=== PATIENT | male | born 1950 | race Caucasian/White ===

== ENCOUNTER 2017-03-05 22:22 | Emergency (ER) | payer OTHER, BC ==
[~2017-03-05 22:22] MED LIST: ABSORBASE TOP; ALLOPURINOL100 MG PO; ALLOPURINOL100 PO; AMLODIPINE BES10 MG PO; AMLODIPINE BESY10 M1 PO; CALCITRIOL0.25 MCG PO; CARVEDILOL12.5 M1 PO; CARVEDILOL25 MG PO; CLINDAMYCIN PHOS TOP; COL250 PO; COLACE100 MG PO; CRESTOR40 M1 PO; CRESTOR40 MG PO; FLUOXETINE HCL PO; FLUOXETINE HCL20 MG PO; FUROCOT40 MG PO; FUROSEMIDE40 MG PO; GLIPIZIDE; GLIPIZIDE10 MG PO; GLU10 PO; HYDROXYZINE PAM50 MG PO; HYDROXYZINE50 M1 PO; LAC PO; LASIX; LEVAQUIN750 MG PO; LISINOPRIL; LISINOPRIL40 MG PO; LOP600 PO; LYRICA; LYRICA100 M1 PO; LYRICA100 MG PO; NORCO1 TA2 PO; OMEPRAZOLE D/R20 M1 PO; OMEPRAZOLE DR20 M1 PO; OMEPRAZOLE20 MG PO; PAXIL10 MG PO; REN800 PO; RENAGEL800 M1 PO; RENAGEL800 MG PO; RENAL MULTIVITA1 TAB PO; TYL500 PO; VIAGRA PO; VIAGRA100 MG PO; VIC PO
[2017-03-06 00:02] LABS: BASOPHIL % 0.6 % (0-2); PLATELET COUNT 102 x10^3mcL (130-400); RED CELL DISTRIBUTION WIDTH 15.9 % (11.5-14.5)
[2017-03-06 00:11] LABS: BILIRUBIN TOTAL 0.6 mg/dL (0.20-1.00); CALCIUM 8.3 mg/dL (8.5-10.1); CARBON DIOXIDE 34.2 mmol/L (21-32); POTASSIUM SERUM 4.8 mmol/L (3.5-5.1)
[2017-03-06 00:12] LABS: ALBUMIN 2.2 g/dL (3.4-5.0); TOTAL PROTEIN, SERUM 5.8 g/dL (6.4-8.2)
[2017-03-06 00:13] LABS: CREATININE SERUM 5.1 mg/dL (0.7-1.3)
[2017-03-06 05:48] VITALS: BP 130/74
== END 2017-03-06 05:48 | disposition home or self-care (01) ==
LOC: ED 22:22
PROVIDERS: Emergency Medicine Emergency Medical Services
DX: T81.4XXA Infection following a procedure, initial encounter (principal); I11.0 Hypertensive heart disease with heart failure; I50.9 Heart failure, unspecified; E11.9 Type 2 diabetes mellitus without complications; Z95.5 Presence of coronary angioplasty implant and graft; Z88.0 Allergy status to penicillin
CPT/HCPCS: G0480; J1956; J3370

== ENCOUNTER 2017-04-04 17:56 | Inpatient (IN) | payer OTHER, BC ==
[~2017-04-04] VITALS: Ht 182.9 cm; Wt 95.9 kg
[2017-04-04 21:08] LABS: BASOPHIL % 0.5 % (0-2); PLATELET COUNT 174 x10^3mcL (130-400)
[2017-04-04 21:28] LABS: RED CELL DISTRIBUTION WIDTH 18.3 % (11.5-14.5)
[2017-04-04 21:31] LABS: BILIRUBIN TOTAL 0.4 mg/dL (0.20-1.00); CALCIUM 9.5 mg/dL (8.5-10.1); CARBON DIOXIDE 33.5 mmol/L (21-32); POTASSIUM SERUM 3.3 mmol/L (3.5-5.1); TOTAL PROTEIN, SERUM 7.5 g/dL (6.4-8.2)
[2017-04-04 21:37] LABS: ALBUMIN 3.2 g/dL (3.4-5.0)
[2017-04-04 21:38] LABS: CREATININE SERUM 5.6 mg/dL (0.7-1.3)
[2017-04-04] MEDS ORDERED: APAP500 MG PO (22:32)
[2017-04-04] MEDS ORDERED: CARVEDILOL25 M1 PO (22:33)
[2017-04-04] MEDS ORDERED: ASPIR 8181 MG PO (22:33)
[2017-04-04] MEDS ORDERED: STOOL SOFTENER100 MG PO (22:34)
[2017-04-04] MEDS ORDERED: SENSIPAR30 M1 PO (22:34)
[2017-04-04] MEDS ORDERED: CLOPIDOGREL75 M1 PO (22:34)
[2017-04-04] MEDS ORDERED: HYDROCORTISONE2.51 TOP (22:35)
[2017-04-04] MEDS ORDERED: COLACE100 MG PO (22:35)
[2017-04-04] MEDS ORDERED: GOOD NEIGHBOR P20 M2 PO (22:36)
[2017-04-04] MEDS ORDERED: OXYCODONE HCL PO (22:37)
[2017-04-04] MEDS ORDERED: PRAZOSIN HYDROCH2 MG PO (22:38)
[2017-04-04] MEDS ORDERED: LYRICA75 M1 PO (22:38)
[2017-04-04] MEDS ORDERED: RENAL VITAMIN0.8 MG PO (22:39)
[2017-04-04] MEDS ORDERED: FLUORITAB0.5 MG TOP (22:40)
[2017-04-04 23:45] VITALS: BP 165/83
[2017-04-05] VITALS (7 sets, daily range): BP systolic 123–165; BP diastolic 63–83; Ht 182.9 cm; Wt 95.9 kg
[2017-04-05 01:58] LABS: CHOLESTEROL/HDL RATIO 4.3; MAGNESIUM 1.8 mg/dL (1.8-2.4); PHOSPHOROUS 3.8 mg/dL (2.5-4.9)
[2017-04-05 02:09] LABS: T3 TOTAL 0.99 ng/mL
[2017-04-05 02:14] LABS: FREE T4 1.48 ng/dL (0.76-1.46); FREE THYROXINE INDEX 4.1 ug/dL (1.4-4.5); T4(THYROXINE) 10.8 ug/dL (4.7-13.3)
[2017-04-05 04:38] LABS: BASOPHIL % 0.7 % (0-2); PLATELET COUNT 157 x10^3mcL (130-400)
[2017-04-05 04:40] LABS: RED CELL DISTRIBUTION WIDTH 17.8 % (11.5-14.5)
[2017-04-05 04:52] LABS: CALCIUM 9.3 mg/dL (8.5-10.1); POTASSIUM SERUM 3.6 mmol/L (3.5-5.1)
[2017-04-05 04:55] LABS: CREATININE SERUM 6.2 mg/dL (0.7-1.3)
[2017-04-06 05:22] VITALS: BP 111/59
[2017-04-06 06:20] LABS: BASOPHIL % 0.6 % (0-2)
[2017-04-06 06:23] LABS: PLATELET COUNT 118 x10^3mcL (130-400); RED CELL DISTRIBUTION WIDTH 17.8 % (11.5-14.5)
[2017-04-06 06:37] LABS: CALCIUM 9.1 mg/dL (8.5-10.1); CARBON DIOXIDE 29.3 mmol/L (21-32); MAGNESIUM 1.9 mg/dL (1.8-2.4); PHOSPHOROUS 6.1 mg/dL (2.5-4.9); POTASSIUM SERUM 3.5 mmol/L (3.5-5.1)
[2017-04-06 07:25] VITALS: BP 121/70
[2017-04-06 11:10] VITALS: BP 119/60
[2017-04-06 14:56] VITALS: BP 116/67
[2017-04-06 18:04] VITALS: BP 132/75
[2017-04-06 21:41] VITALS: BP 139/73
[2017-04-07 05:54] VITALS: BP 100/56
[2017-04-07 06:38] LABS: CALCIUM 8.4 mg/dL (8.5-10.1); CARBON DIOXIDE 27.2 mmol/L (21-32); MAGNESIUM 1.8 mg/dL (1.8-2.4); PHOSPHOROUS 6.4 mg/dL (2.5-4.9)
[2017-04-07 06:47] LABS: BASOPHIL % 0.4 % (0-2)
[2017-04-07 06:53] LABS: CREATININE SERUM 9.4 mg/dL (0.7-1.3)
[2017-04-07 07:10] LABS: PLATELET COUNT 95 x10^3mcL (130-400); RED CELL DISTRIBUTION WIDTH 17.4 % (11.5-14.5)
[2017-04-07 08:52] VITALS: BP 129/69
[2017-04-07 09:19] LABS: AMPHETAMINE QUAL UR NONE DETECTED (NEG <=1000)
[2017-04-07 12:09] VITALS: BP 128/74
[2017-04-07 16:57] VITALS: BP 132/62
[2017-04-07 17:37] LABS: microscopic required? YES; urine erythrocyte NEGATIVE (NEGATIVE)
[2017-04-07 21:23] VITALS: BP 139/72
== END 2017-04-08 01:17 | disposition left against medical advice (07) | DRG 205 ==
LOC: ED 17:56 → DU 22:46
PROVIDERS: Emergency Medicine; Family Medicine Sports Medicine; ADMIT Family Medicine
DX: M94.0 Chondrocostal junction syndrome [Tietze] (principal); I26.99 Other pulmonary embolism without acute cor pulmonale; N17.0 Acute kidney failure with tubular necrosis; N18.6 End stage renal disease; E44.0 Moderate protein-calorie malnutrition; I12.0 Hypertensive chronic kidney disease with stage 5 chronic kidney disease or end stage renal disease; I25.10 Atherosclerotic heart disease of native coronary artery without angina pectoris; M10.9 Gout, unspecified; G47.33 Obstructive sleep apnea (adult) (pediatric); E87.6 Hypokalemia; E78.5 Hyperlipidemia, unspecified; D53.9 Nutritional anemia, unspecified; F32.9 Major depressive disorder, single episode, unspecified; F14.10 Cocaine abuse, uncomplicated; Z68.30 Body mass index [BMI] 30.0-30.9, adult; Z99.2 Dependence on renal dialysis; Z95.5 Presence of coronary angioplasty implant and graft; Z90.5 Acquired absence of kidney
CPT/HCPCS: 78598; 82962; 83880; 84439; 85378; A9540; J1644; J7030; J7042; Q0092; Q0163

== ENCOUNTER 2017-05-29 17:33 | Emergency (ER) | payer OTHER, BC ==
[~2017-05-29] VITALS: Ht 182.9 cm; Wt 98.0 kg
[~2017-05-29 17:33] MED LIST changes: +APAP500 MG PO; +ASPIR 8181 MG PO; +CARVEDILOL25 M1 PO; +CLOPIDOGREL75 M1 PO; +FLUORITAB0.5 MG TOP; +GOOD NEIGHBOR P20 M2 PO; +HYDROCORTISONE2.51 TOP; +LYRICA75 M1 PO; +OXYCODONE HCL PO; +PRAZOSIN HYDROCH2 MG PO; +RENAL VITAMIN0.8 MG PO; +SENSIPAR30 M1 PO; +STOOL SOFTENER100 MG PO
[2017-05-29 18:37] LABS: BASOPHIL % 1.2 % (0-2); PLATELET COUNT 171 x10^3mcL (130-400)
[2017-05-29 18:54] LABS: RED CELL DISTRIBUTION WIDTH 18.2 % (11.5-14.5)
[2017-05-29] MEDS ORDERED: SUDAFED CONGEST30 MG PO (18:57)
[2017-05-29] MEDS ORDERED: REN800 PO (18:58)
[2017-05-29] MEDS ORDERED: PAXIL10 MG PO (18:58)
[2017-05-29] MEDS ORDERED: LISINOPRIL40 MG PO (18:58)
[2017-05-29] MEDS ORDERED: FLONS (18:58)
[2017-05-29] MEDS ORDERED: LYRICA100 M1 PO (18:58)
[2017-05-29] MEDS ORDERED: HYDROXYZINE PAM50 MG PO (18:59)
[2017-05-29] MEDS ORDERED: GOOD SENSE OMEP20 MG PO (19:00)
[2017-05-29 19:04] LABS: BILIRUBIN TOTAL 0.68 mg/dL (0.20-1.00); CALCIUM 9.2 mg/dL (8.5-10.1); CARBON DIOXIDE 28.6 mmol/L (21-32); POTASSIUM SERUM 4.7 mmol/L (3.5-5.1); T4(THYROXINE) 5.8 ug/dL (4.7-13.3); TOTAL PROTEIN, SERUM 6.8 g/dL (6.4-8.2)
[2017-05-29] MEDS ORDERED: LASIX40 MG PO (19:04)
[2017-05-29] MEDS ORDERED: GLUCOTROL10 MG PO (19:04)
[2017-05-29] MEDS ORDERED: CRESTOR40 M1 PO (19:05)
[2017-05-29] MEDS ORDERED: COREG12.5 MG PO (19:05)
[2017-05-29] MEDS ORDERED: PROZ20 PO (19:05)
[2017-05-29] MEDS ORDERED: CALCITRIOL0.25 MCG PO (19:05)
[2017-05-29] MEDS ORDERED: NOR10 PO (19:05)
[2017-05-29] MEDS ORDERED: ALLOPURINOL100 MG PO (19:06)
[2017-05-29 19:10] LABS: CREATININE SERUM 8.6 mg/dL (0.7-1.3)
[2017-05-29 20:53] VITALS: BP 133/74
== END 2017-05-29 20:54 | disposition home or self-care (01) ==
LOC: ED 17:33
PROVIDERS: Emergency Medicine
DX: J00 Acute nasopharyngitis [common cold] (principal); E11.22 Type 2 diabetes mellitus with diabetic chronic kidney disease; E78.00 Pure hypercholesterolemia, unspecified; I12.0 Hypertensive chronic kidney disease with stage 5 chronic kidney disease or end stage renal disease; N18.6 End stage renal disease; M10.9 Gout, unspecified; E46 Unspecified protein-calorie malnutrition; D64.9 Anemia, unspecified; I44.7 Left bundle-branch block, unspecified; Z99.2 Dependence on renal dialysis
CPT/HCPCS: 36600; 83880; Q0092

== ENCOUNTER 2017-09-28 17:33 | Inpatient (IN) | payer OTHER, BC ==
[~2017-09-28] VITALS: Ht 182.9 cm; Wt 95.8 kg
[~2017-09-28 17:33] MED LIST changes: +COREG12.5 MG PO; +FLONS; +GLUCOTROL10 MG PO; +GOOD SENSE OMEP20 MG PO; +LASIX40 MG PO; +NOR10 PO; +PROZ20 PO; +SUDAFED CONGEST30 MG PO
[2017-09-28] MEDS ORDERED: ZYLOPRIM300 MG PO (18:25)
[2017-09-28] MEDS ORDERED: NOR10 PO (18:25)
[2017-09-28] MEDS ORDERED: CALCITRIOL0.25 MCG PO (18:26)
[2017-09-28] MEDS ORDERED: COREG6.25 M1 PO (18:30)
[2017-09-28] MEDS ORDERED: FLUOXETINE20 M3 PO (18:31)
[2017-09-28] MEDS ORDERED: GLIPIZIDE10 M2 PO (18:32)
[2017-09-28] MEDS ORDERED: LASIX40 MG PO (18:32)
[2017-09-28] MEDS ORDERED: LISINOPRIL40 MG PO (18:34)
[2017-09-28] MEDS ORDERED: GOOD SENSE OMEP20 MG PO (18:34)
[2017-09-28] MEDS ORDERED: LYRICA100 M1 PO (18:34)
[2017-09-28] MEDS ORDERED: HYDROXYZINE50 M1 PO (18:34)
[2017-09-28] MEDS ORDERED: PAXIL10 MG PO (18:34)
[2017-09-28] MEDS ORDERED: CRESTOR40 M1 PO (18:35)
[2017-09-28] MEDS ORDERED: RENVELA800 M1 PO (18:35)
[2017-09-28 20:27] LABS: BASOPHIL % 0.7 % (0-2); PLATELET COUNT 205 x10^3mcL (130-400)
[2017-09-28 21:00] LABS: BILIRUBIN TOTAL 0.4 mg/dL (0.20-1.00); CALCIUM 8.8 mg/dL (8.5-10.1); POTASSIUM SERUM 4.6 mmol/L (3.5-5.1); T4(THYROXINE) 5.9 ug/dL (4.7-13.3); TOTAL PROTEIN, SERUM 6.7 g/dL (6.4-8.2)
[2017-09-28 21:03] LABS: RED CELL DISTRIBUTION WIDTH 18.3 % (11.5-14.5)
[2017-09-28 22:45] VITALS: BP 156/90
[2017-09-29 04:00] LABS: BASOPHIL % 0.6 % (0-2); PLATELET COUNT 188 x10^3mcL (130-400); RED CELL DISTRIBUTION WIDTH 17.8 % (11.5-14.5)
[2017-09-29 04:06] LABS: CALCIUM 8.6 mg/dL (8.5-10.1); CARBON DIOXIDE 31.4 mmol/L (21-32); POTASSIUM SERUM 4.6 mmol/L (3.5-5.1)
[2017-09-29 04:22] LABS: CREATININE SERUM 8.2 mg/dL (0.7-1.3)
[2017-09-29 06:43] VITALS: BP 150/91
[2017-09-29 09:13] LABS: T3 TOTAL 0.62 ng/mL
[2017-09-29 09:37] VITALS: BP 139/85
[2017-09-29 10:35] LABS: CHOLESTEROL/HDL RATIO 2.9; MAGNESIUM 2.1 mg/dL (1.8-2.4); PHOSPHOROUS 7.7 mg/dL (2.5-4.9)
[2017-09-29 11:26] LABS: FREE T4 1.17 ng/dL (0.76-1.46); FREE THYROXINE INDEX 2.2 ug/dL (1.4-4.5); T4(THYROXINE) 6.1 ug/dL (4.7-13.3)
[2017-09-29 13:55] VITALS: BP 130/80
[2017-09-29 17:08] VITALS: BP 123/64
[2017-09-29 20:57] VITALS: BP 110/76
[2017-09-30 05:47] VITALS: BP 106/58
[2017-09-30 06:36] LABS: CALCIUM 8.7 mg/dL (8.5-10.1); CARBON DIOXIDE 29.9 mmol/L (21-32); MAGNESIUM 1.9 mg/dL (1.8-2.4); POTASSIUM SERUM 4.5 mmol/L (3.5-5.1)
[2017-09-30 06:42] LABS: CREATININE SERUM 6.2 mg/dL (0.7-1.3)
[2017-09-30 06:59] LABS: BASOPHIL % 0.5 % (0-2); PLATELET COUNT 154 x10^3mcL (130-400)
[2017-09-30 09:14] VITALS: Ht 182.9 cm; Wt 95.8 kg
[2017-09-30 10:06] VITALS: BP 122/67
[2017-09-30] MEDS ORDERED: LASIX40 MG PO (10:23)
[2017-09-30] MEDS ORDERED: GOOD SENSE ASPI81 M3 PO (11:28)
[2017-09-30 13:41] VITALS: BP 122/67
== END 2017-09-30 15:03 | disposition home health service (06) | DRG 291 ==
LOC: ED 17:33 → DU 21:27
PROVIDERS: Emergency Medicine; Family Medicine; Family Medicine Sports Medicine
PROC: 5A1D70Z Performance of Urinary Filtration, Intermittent, Less than 6 Hours Per Day (ICD-10-PCS; principal; 2017-09-29)
DX: I13.2 Hypertensive heart and chronic kidney disease with heart failure and with stage 5 chronic kidney disease, or end stage renal disease (principal); N18.6 End stage renal disease; I50.43 Acute on chronic combined systolic (congestive) and diastolic (congestive) heart failure; N17.0 Acute kidney failure with tubular necrosis; E44.0 Moderate protein-calorie malnutrition; E78.5 Hyperlipidemia, unspecified; I44.7 Left bundle-branch block, unspecified; E11.65 Type 2 diabetes mellitus with hyperglycemia; I25.10 Atherosclerotic heart disease of native coronary artery without angina pectoris; R26.81 Unsteadiness on feet; E83.39 Other disorders of phosphorus metabolism; E11.51 Type 2 diabetes mellitus with diabetic peripheral angiopathy without gangrene; M94.0 Chondrocostal junction syndrome [Tietze]; E11.22 Type 2 diabetes mellitus with diabetic chronic kidney disease; Z99.2 Dependence on renal dialysis; Z88.0 Allergy status to penicillin; Z90.49 Acquired absence of other specified parts of digestive tract; Z91.15 Patient's noncompliance with renal dialysis; I25.2 Old myocardial infarction; Z95.5 Presence of coronary angioplasty implant and graft; Z93.6 Other artificial openings of urinary tract status; Z83.3 Family history of diabetes mellitus; Z82.49 Family history of ischemic heart disease and other diseases of the circulatory system; Z68.27 Body mass index [BMI] 27.0-27.9, adult
CPT/HCPCS: 82962; 83880; 84439; 97110-GP; 97530-GP; J1644; J1940; J1956; J7030; Q0092

== ENCOUNTER 2018-02-24 11:57 | Inpatient (IN) | payer OTHER, BC ==
[~2018-02-24] VITALS: Ht 170.2 cm; Wt 91.7 kg
[~2018-02-24 11:57] MED LIST changes: +COREG6.25 M1 PO; +FLUOXETINE20 M3 PO; +GLIPIZIDE10 M2 PO; +GOOD SENSE ASPI81 M3 PO; +RENVELA800 M1 PO; +ZYLOPRIM300 MG PO
[2018-02-24 12:26] VITALS: Ht 170.2 cm; Wt 91.7 kg
[2018-02-24 13:00] LABS: BASOPHIL % 0.7 % (0-2)
[2018-02-24 13:02] LABS: PLATELET COUNT 121 x10^3mcL (130-400); RED CELL DISTRIBUTION WIDTH 20.4 % (11.5-14.5)
[2018-02-24 13:22] LABS: BILIRUBIN TOTAL 0.73 mg/dL (0.20-1.00); CALCIUM 8.6 mg/dL (8.5-10.1); CARBON DIOXIDE 26.1 mmol/L (21-32); POTASSIUM SERUM 4.7 mmol/L (3.5-5.1); TOTAL PROTEIN, SERUM 6.3 g/dL (6.4-8.2)
[2018-02-24 13:27] LABS: ALBUMIN 2.6 g/dL (3.4-5.0)
[2018-02-24 13:28] LABS: CREATININE SERUM 6.5 mg/dL (0.7-1.3)
[2018-02-24] MEDS ORDERED: ALLOPURINOL100 MG PO (13:56)
[2018-02-24] MEDS ORDERED: CAVERJECT IMPU IJ (13:58)
[2018-02-24] MEDS ORDERED: ASPIR LOW81 MG PO (13:59)
[2018-02-24] MEDS ORDERED: PLA75 PO (13:59)
[2018-02-24] MEDS ORDERED: FLUOXETINE40 MG PO (14:01)
[2018-02-24] MEDS ORDERED: GLUCOTROL10 MG PO (14:01)
[2018-02-24] MEDS ORDERED: TOPROL XL50 MG PO (14:02)
[2018-02-24] MEDS ORDERED: GOOD NEIGHBOR P20 M2 PO (14:03)
[2018-02-24] MEDS ORDERED: PRAZOSIN HYDROCH2 MG PO (14:04)
[2018-02-24] MEDS ORDERED: LYRICA100 M1 PO (14:05)
[2018-02-24] MEDS ORDERED: LYRICA75 M1 PO (14:06)
[2018-02-24] MEDS ORDERED: RENVELA800 M1 PO (14:07)
[2018-02-24] MEDS ORDERED: CRESTOR40 M1 PO (14:07)
[2018-02-24] MEDS ORDERED: RENAL CAPS1 SGL PO (14:07)
[2018-02-24 14:14] LABS: ovalocyte/elliptocyte 1+; rbc morphology (normal/abnorm) ABNORMAL (NORMAL); tear drop cell (dacryocyte) 1+
[2018-02-24 15:35] LABS: T3 TOTAL 0.56 ng/mL
[2018-02-24 15:45] LABS: PHOSPHOROUS 6.2 mg/dL (2.5-4.9)
[2018-02-24 15:52] LABS: FREE T4 1.21 ng/dL (0.76-1.46); FREE THYROXINE INDEX 2.3 ug/dL (1.4-4.5); T4(THYROXINE) 6.5 ug/dL (4.7-13.3)
[2018-02-24 16:57] VITALS: BP 99/54
[2018-02-24] MEDS ORDERED: OXYCODONE HYDROC5 M2 PO (17:55)
[2018-02-24 19:30] VITALS: BP 109/63
[2018-02-25 05:24] VITALS: BP 101/57
[2018-02-25 07:04] LABS: CALCIUM 8.5 mg/dL (8.5-10.1); CARBON DIOXIDE 26.5 mmol/L (21-32); PHOSPHOROUS 4.7 mg/dL (2.5-4.9); POTASSIUM SERUM 4.5 mmol/L (3.5-5.1)
[2018-02-25 07:05] LABS: BASOPHIL % 0.5 % (0-2)
[2018-02-25 07:06] LABS: PLATELET COUNT 117 x10^3mcL (130-400); RED CELL DISTRIBUTION WIDTH 20.1 % (11.5-14.5)
[2018-02-25 07:07] LABS: rbc morphology (normal/abnorm) ABNORMAL (NORMAL)
[2018-02-25 07:50] LABS: CREATININE SERUM 4.8 mg/dL (0.7-1.3)
[2018-02-25 09:16] VITALS: BP 100/63
[2018-02-25 17:24] VITALS: BP 105/62
[2018-02-25 20:46] VITALS: BP 102/63; BP 111/66
[2018-02-26 05:12] VITALS: BP 101/59
[2018-02-26 06:03] LABS: BASOPHIL % 0.5 % (0-2); PLATELET COUNT 130 x10^3mcL (130-400)
[2018-02-26 06:25] LABS: CALCIUM 8.4 mg/dL (8.5-10.1); CARBON DIOXIDE 25.7 mmol/L (21-32); MAGNESIUM 2.1 mg/dL (1.8-2.4); PHOSPHOROUS 5.6 mg/dL (2.5-4.9)
[2018-02-26 06:32] LABS: CREATININE SERUM 5.7 mg/dL (0.7-1.3); POTASSIUM SERUM 5.6 mmol/L (3.5-5.1)
[2018-02-26 06:39] LABS: RED CELL DISTRIBUTION WIDTH 20.5 % (11.5-14.5)
[2018-02-26 08:47] VITALS: BP 112/61
[2018-02-26 09:30] LABS: ovalocyte/elliptocyte 1+
[2018-02-26 10:32] LABS: rbc morphology (normal/abnorm) ABNORMAL (NORMAL)
[2018-02-26 17:03] VITALS: BP 106/54
[2018-02-26 20:40] VITALS: BP 141/72
[2018-02-27 05:00] VITALS: BP 100/61
[2018-02-27 06:31] LABS: CARBON DIOXIDE 26.9 mmol/L (21-32); POTASSIUM SERUM 4.4 mmol/L (3.5-5.1)
[2018-02-27 16:00] VITALS: BP 97/55
[2018-02-27 20:42] VITALS: BP 125/68
[2018-02-28 05:45] VITALS: BP 96/57
[2018-02-28 06:37] LABS: CALCIUM 8.5 mg/dL (8.5-10.1); CARBON DIOXIDE 28.3 mmol/L (21-32); POTASSIUM SERUM 4.8 mmol/L (3.5-5.1)
[2018-02-28 06:50] LABS: CREATININE SERUM 4.7 mg/dL (0.7-1.3)
[2018-02-28 07:28] LABS: BASOPHIL % 0.3 % (0-2)
[2018-02-28 07:49] LABS: RED CELL DISTRIBUTION WIDTH 19.2 % (11.5-14.5)
[2018-02-28 08:01] LABS: PLATELET COUNT 140 x10^3mcL (130-400)
[2018-02-28 08:37] VITALS: BP 89/52
[2018-02-28 08:39] VITALS: BP 93/53
[2018-02-28] MEDS ORDERED: BACTRIM DS1 TAB PO (14:43)
[2018-02-28] MEDS ORDERED: NOVAPLUS LIDOCAI5 ML TOP (14:44)
[2018-02-28 15:23] VITALS: BP 93/53
== END 2018-02-28 16:18 | disposition home or self-care (01) | DRG 637 ==
LOC: ED 11:57 → MU 14:38
PROVIDERS: Emergency Medicine; Family Medicine
DX: E11.649 Type 2 diabetes mellitus with hypoglycemia without coma (principal); E43 Unspecified severe protein-calorie malnutrition; I12.0 Hypertensive chronic kidney disease with stage 5 chronic kidney disease or end stage renal disease; E87.1 Hypo-osmolality and hyponatremia; L03.115 Cellulitis of right lower limb; L97.211 Non-pressure chronic ulcer of right calf limited to breakdown of skin; N18.6 End stage renal disease; N17.0 Acute kidney failure with tubular necrosis; E11.22 Type 2 diabetes mellitus with diabetic chronic kidney disease; B96.1 Klebsiella pneumoniae [K. pneumoniae] as the cause of diseases classified elsewhere; E83.39 Other disorders of phosphorus metabolism; I25.2 Old myocardial infarction; Z99.2 Dependence on renal dialysis; Z90.5 Acquired absence of kidney; Z68.22 Body mass index [BMI] 22.0-22.9, adult; Z79.84 Long term (current) use of oral hypoglycemic drugs
CPT/HCPCS: 84439; J0713; J3370; J3490; J7030; J7050; Q0092; Q0162

== ENCOUNTER 2018-02-28 22:13 | Inpatient (IN) | payer OTHER, BC ==
[~2018-02-28] VITALS: Ht 182.9 cm; Wt 92.1 kg
[~2018-02-28 22:13] MED LIST changes: +ASPIR LOW81 MG PO; +BACTRIM DS1 TAB PO; +CAVERJECT IMPU IJ; +FLUOXETINE40 MG PO; +NOVAPLUS LIDOCAI5 ML TOP; +OXYCODONE HYDROC5 M2 PO; +PLA75 PO; +RENAL CAPS1 SGL PO; +TOPROL XL50 MG PO
[2018-02-28 22:22] VITALS: Ht 182.9 cm; Wt 92.1 kg
[2018-03-01] VITALS (7 sets, daily range): BP systolic 98–138; BP diastolic 52–75
[2018-03-01 00:05] LABS: CALCIUM 8.3 mg/dL (8.5-10.1); CARBON DIOXIDE 25.6 mmol/L (21-32); POTASSIUM SERUM 5.4 mmol/L (3.5-5.1)
[2018-03-01 00:08] LABS: CREATININE SERUM 5.4 mg/dL (0.7-1.3)
[2018-03-01 02:12] LABS: MAGNESIUM 1.9 mg/dL (1.8-2.4); PHOSPHOROUS 6.2 mg/dL (2.5-4.9)
[2018-03-01 08:39] LABS: BASOPHIL % 0.7 % (0-2); PLATELET COUNT 137 x10^3mcL (130-400)
[2018-03-01 08:49] LABS: RED CELL DISTRIBUTION WIDTH 19.7 % (11.5-14.5)
[2018-03-01 09:07] LABS: CALCIUM 8.2 mg/dL (8.5-10.1); CARBON DIOXIDE 28.3 mmol/L (21-32); POTASSIUM SERUM 4.9 mmol/L (3.5-5.1)
[2018-03-01 09:11] LABS: CREATININE SERUM 5.9 mg/dL (0.7-1.3)
[2018-03-02 05:39] VITALS: BP 94/53
[2018-03-02 07:28] LABS: CALCIUM 8.1 mg/dL (8.5-10.1); CARBON DIOXIDE 26.9 mmol/L (21-32); MAGNESIUM 1.8 mg/dL (1.8-2.4); PHOSPHOROUS 5.3 mg/dL (2.5-4.9)
[2018-03-02 07:33] LABS: BASOPHIL % 0.6 % (0-2)
[2018-03-02 07:43] LABS: PLATELET COUNT 115 x10^3mcL (130-400); RED CELL DISTRIBUTION WIDTH 19.4 % (11.5-14.5)
[2018-03-02 07:44] LABS: CREATININE SERUM 4.7 mg/dL (0.7-1.3)
[2018-03-02 08:00] VITALS: BP 105/57
[2018-03-02 12:39] VITALS: BP 111/66
[2018-03-02 17:24] VITALS: BP 105/63
[2018-03-02 19:40] VITALS: BP 92/56
[2018-03-03 06:13] VITALS: BP 111/66
[2018-03-03 07:42] LABS: BASOPHIL % 0.3 % (0-2); PLATELET COUNT 130 x10^3mcL (130-400); RED CELL DISTRIBUTION WIDTH 19.4 % (11.5-14.5)
[2018-03-03 07:58] LABS: CALCIUM 8.5 mg/dL (8.5-10.1); POTASSIUM SERUM 4.6 mmol/L (3.5-5.1)
[2018-03-03 08:00] VITALS: BP 93/59
[2018-03-03 08:02] LABS: CREATININE SERUM 5.8 mg/dL (0.7-1.3)
[2018-03-03 13:15] VITALS: BP 122/72
[2018-03-03 17:22] VITALS: BP 122/75
[2018-03-03 20:29] VITALS: BP 124/71
[2018-03-04 05:18] VITALS: BP 110/69
[2018-03-04 07:54] LABS: BASOPHIL % 0.7 % (0-2); PLATELET COUNT 116 x10^3mcL (130-400); RED CELL DISTRIBUTION WIDTH 19.2 % (11.5-14.5)
[2018-03-04 07:55] LABS: CALCIUM 8.4 mg/dL (8.5-10.1); CARBON DIOXIDE 28.1 mmol/L (21-32); POTASSIUM SERUM 4.1 mmol/L (3.5-5.1)
[2018-03-04 07:57] LABS: CREATININE SERUM 5.1 mg/dL (0.7-1.3)
[2018-03-04] MEDS ORDERED: LEVOFLOXACIN500 M1 PO (08:31)
[2018-03-04 08:35] VITALS: BP 110/69
[2018-03-04 09:05] VITALS: BP 108/58
== END 2018-03-04 10:56 | disposition home or self-care (01) | DRG 291 ==
LOC: ED 22:13 → DU 03-01 00:31
PROVIDERS: Emergency Medicine; Family Medicine; Internal Medicine
DX: I13.2 Hypertensive heart and chronic kidney disease with heart failure and with stage 5 chronic kidney disease, or end stage renal disease (principal); N17.0 Acute kidney failure with tubular necrosis; J96.01 Acute respiratory failure with hypoxia; N18.6 End stage renal disease; E87.1 Hypo-osmolality and hyponatremia; E44.0 Moderate protein-calorie malnutrition; L03.115 Cellulitis of right lower limb; L97.219 Non-pressure chronic ulcer of right calf with unspecified severity; I83.012 Varicose veins of right lower extremity with ulcer of calf; E11.22 Type 2 diabetes mellitus with diabetic chronic kidney disease; I50.9 Heart failure, unspecified; B96.1 Klebsiella pneumoniae [K. pneumoniae] as the cause of diseases classified elsewhere; B96.89 Other specified bacterial agents as the cause of diseases classified elsewhere; D69.59 Other secondary thrombocytopenia; E87.5 Hyperkalemia; E83.39 Other disorders of phosphorus metabolism; E78.5 Hyperlipidemia, unspecified; I25.2 Old myocardial infarction; E66.9 Obesity, unspecified; Z68.31 Body mass index [BMI] 31.0-31.9, adult; Z79.891 Long term (current) use of opiate analgesic; Z79.82 Long term (current) use of aspirin; Z79.84 Long term (current) use of oral hypoglycemic drugs; Z99.2 Dependence on renal dialysis; Z90.5 Acquired absence of kidney
CPT/HCPCS: 83880; A4719; J0610; J0713; J1200; J1815; J1940; J2001; J2270; J3490; Q0092; Q0163

== ENCOUNTER 2018-03-05 01:02 | Emergency (ER) | payer OTHER, BC ==
[~2018-03-05] VITALS: Ht 182.9 cm; Wt 98.9 kg
[~2018-03-05 01:02] MED LIST changes: +LEVOFLOXACIN500 M1 PO
[2018-03-05 01:13] VITALS: Ht 182.9 cm; Wt 98.9 kg
[2018-03-05 02:58] VITALS: BP 126/74
== END 2018-03-05 02:58 | disposition home or self-care (01) ==
LOC: ED 01:02
DX: K59.00 Constipation, unspecified (principal); J44.9 Chronic obstructive pulmonary disease, unspecified; I10 Essential (primary) hypertension; E11.9 Type 2 diabetes mellitus without complications; Z90.49 Acquired absence of other specified parts of digestive tract; Z88.0 Allergy status to penicillin

== ENCOUNTER 2018-03-10 03:23 | Emergency (ER) | payer OTHER, BC ==
[~2018-03-10] VITALS: Ht 182.9 cm; Wt 91.4 kg
[2018-03-10 03:27] VITALS: Ht 182.9 cm; Wt 91.4 kg
[2018-03-10 04:40] VITALS: BP 111/65
== END 2018-03-10 04:40 | disposition home or self-care (01) ==
LOC: ED 03:23
DX: F41.9 Anxiety disorder, unspecified (principal); J44.1 Chronic obstructive pulmonary disease with (acute) exacerbation; I10 Essential (primary) hypertension; E11.9 Type 2 diabetes mellitus without complications; Z88.0 Allergy status to penicillin
CPT/HCPCS: Q0092

== ENCOUNTER 2018-05-06 10:12 | Emergency (ER) | payer OTHER, BC ==
[~2018-05-06] VITALS: Ht 152.4 cm; Wt 88.0 kg
[2018-05-06 10:20] VITALS: Ht 152.4 cm; Wt 88.0 kg
[2018-05-06 10:58] LABS: BASOPHIL % 1.2 % (0-2)
[2018-05-06 11:09] LABS: BILIRUBIN TOTAL 2.6 mg/dL (0.20-1.00); CALCIUM 8.7 mg/dL (8.5-10.1); CARBON DIOXIDE 30.5 mmol/L (21-32); TOTAL PROTEIN, SERUM 6.6 g/dL (6.4-8.2)
[2018-05-06 11:11] LABS: ALBUMIN 2.5 g/dL (3.4-5.0)
[2018-05-06 11:12] LABS: POTASSIUM SERUM 6.1 mmol/L (3.5-5.1)
[2018-05-06 11:13] LABS: CREATININE SERUM 6.7 mg/dL (0.7-1.3)
[2018-05-06 11:15] LABS: PLATELET COUNT 116 x10^3mcL (130-400)
[2018-05-06 12:35] VITALS: BP 134/84
== END 2018-05-06 12:36 | disposition home or self-care (01) ==
LOC: ED 10:12
PROVIDERS: Emergency Medicine
DX: E11.22 Type 2 diabetes mellitus with diabetic chronic kidney disease (principal); I12.0 Hypertensive chronic kidney disease with stage 5 chronic kidney disease or end stage renal disease; N18.6 End stage renal disease; E87.5 Hyperkalemia; Z99.2 Dependence on renal dialysis; Z90.49 Acquired absence of other specified parts of digestive tract; Z88.0 Allergy status to penicillin; Z98.890 Other specified postprocedural states; W18.39XA Other fall on same level, initial encounter; Y93.89 Activity, other specified; Y92.89 Other specified places as the place of occurrence of the external cause; Y99.8 Other external cause status
CPT/HCPCS: 36415

== ENCOUNTER 2018-06-15 14:11 | Emergency (ER) | payer OTHER, BC ==
[~2018-06-15] VITALS: Ht 182.9 cm; Wt 90.3 kg
[2018-06-15 14:32] VITALS: Ht 182.9 cm; Wt 90.3 kg
[2018-06-15 14:45] VITALS: BP 114/61
== END 2018-06-15 14:45 | disposition left against medical advice (07) ==
LOC: ED 14:11
DX: Z53.21 Procedure and treatment not carried out due to patient leaving prior to being seen by health care provider (principal)